=== PATIENT | male | born 1980 | race African-American/Black ===

== ENCOUNTER → 2017-06-03 | Outpatient (CLI) | payer BC ==
[~2017-06-03] MED LIST: AMBIEN 10 MG TA10 MG PO; AMLODIPINE BESY10 MG PO; ASPIR 8181 MG PO; COZAAR 25 MG TA25 M1 PO; IBUPROFEN 800800 M1 PO; NABUMETONE 500500 M1 PO; NAPROSYN500 MG PO; NEURONTIN 300300 M1 PO; NORCO 5-325 TA1 EACH PO; PERCOCET 10-321 EACH PO; TIZANIDINE4 MG/1 TA1 PO
--- NOTE | 2017-06-05 09:33 | PAINCON ---
[address] [address] PAIN MANAGEMENT CONSULTATION Name: BENJAMIN EDWARDS Room: [facility].#: [id number] Admission: 06/03/17 Attend Phys: Christelle Camilo Discharge: Date of : 78 Report #: [id number] THIS REPORT FOR: //name// CC: David Kevin DATE OF SERVICE: 06/03/2017 The patient is a 36-year-old gentleman, prior seen in the pain clinic 04/15/2017 diagnosed with axial back pain, lumbosacral spondylosis, component of lumbar radiculopathy. Comorbidities include morbid obesity, hypertension. The patient returns to pain clinic today. He is continuing with Naprosyn 500 mg on a p.r.n. basis, tizanidine for spasm. I gave him a small prescription of Percocet 7.5/325 of #45 tablets at last visit with some efficacy. We sought authorization for bilateral L4-L5 and L5-S1 facet joint injections at last visit. He returns to pain clinic today noting pain continues to be problematic in the low back, exacerbated with rotating and side bending. No radicular symptoms are noted. Rates pain a 3-4 on a VAS. PHYSICAL EXAMINATION: Shows a 6 feet 1 inch, 367 pound gentleman, BMI is elevated at 48.5 kilograms per meter squared. Blood pressure is elevated 160/104, repeat at 140/99, pulse 80, respirations 16. Rises from chair using armrest. Diffuse tenderness across the low back. Pain is exacerbated with side bending and rotation. Lower extremity strength symmetric. Straight leg raise negative. We reviewed the fact that opiate medications are being used to provide analgesia adequate to support activities of daily living, not attempting to achieve a specific pain score on the 0-10 Visual Analog Scale. The current opiate medications are providing sufficient analgesia to allow the patient to participate in activities of daily living. The patient is not exhibiting any aberrant behavior suggestive of drug diversion. The patient is not having any adverse reactions to medications. The patient is not suffering from daytime somnolence or mental acuity changes. The patient is managing opiate-induced constipation with appropriate llpw-rpj-[id number] agents and dietary considerations. The patient was counseled on concern for caution with operating a motor vehicle while using opiate medications. A physical exam was performed and the patient's functional status was evaluated. All patients with back pain were advised against the bed rest greater than 4 days and were advised to return to normal activities. Pain score assessment was noted and the treatment plan was reviewed with the patient. All current medications, both prescribed and OTC were reviewed and reconciled on the electronic medical record. Tobacco screening was accomplished and smoking cessation was advised when indicated. BMI was noted and diet/[place] [address] PAIN MANAGEMENT CONSULTATION Name: BENJAMIN EDWARDS [facility] [id number] Admission: 06/03/17 Attend Phys: Christelle Camilo Discharge: Date of : 79 Report #: [id number] modification was recommended for all patients following outside normal parameters. I reviewed with the patient today their responsibilities to safeguard prescription medications, reviewed their responsibility to utilize medications only as prescribed by the physician. They are to seek and receive pain medications only from 1 physician group ( [facility]). They are to use 1 pharmacy and keep the clinic informed if they change pharmacies. Their responsibilities include making followup visits in a timely fashion and to avoid abrupt discontinuation of medication usage. Their responsibilities further include bringing their medications (bottles from the pharmacy with residual pills) to the visit for possible confirmation of pill counts and the patient understands it is their responsibility to submit to random drug screens to ensure both that the medications prescribed are present, and that no other controlled substances are present. All prescriptions provided today were generated electronically. ASSESSMENT: 1. Symptomatic lumbar radiculopathy, clinical exam and history, axial back pain, lumbar spondylosis requiring complex medication management. Comorbidity includes morbid obesity, hypertension. RECOMMENDATION: 1. Continue Naprosyn on a p.r.n. basis. Suggest he follow up with general assembler installer physician regarding hypertension. 2. Continue tizanidine 4 mg t.i.d. 3. I have taken the liberty of renewing Percocet 7.5/325 one tablet 2-3 times a day, limit #60 tablets. We will again ask his general assembler installer physician check renal function as well as evaluate hypertension. 2. Lumbar spondylosis. PROCEDURE: Bilateral L4-L5 and facet joint injection under fluoroscopy. PROCEDURE NOTE: After written informed consent was obtained, the patient was taken to the fluoroscopy suite and placed in prone position. After sterile prep and drape, skin was raised. A 22-gauge 6-inch Chiba needle was placed to contact the inferior aspect of the left L4-L5 facet joint. A second needle was placed to contact the posterior aspect of the left L5-S1 facet joint. AP and lateral projections showed good needle placement. A 25 mg of triamcinolone plus 1 mL of 0.5% preservative-free bupivacaine was injected through each needle. Needle was removed. C-arm was turned obliquely to the right and the procedure was repeated at this side. After all 4 needles were removed, the area was cleansed and Band-Aids were applied. The patient was allowed to ambulate to recovery, monitored for an appropriate period of time. Fluoroscopy time was 27 [place] [address] PAIN MANAGEMENT CONSULTATION Name: BENJAMIN EDWARDS Room: [facility]#: [id number] Admission: 06/03/17 Attend Phys: Christelle Camilo Discharge: Date of : 79 Report #: [id number] Follow up in 4 weeks for reevaluation. <ELECTRONICALLY SIGNED> By: Christian Kevin DO 06/05/17 0933 [id number] [id number] Kevin DO /nt
== END | disposition home or self-care (01) ==
LOC: M.PC 04-22 02:25
DX: M47.26 Other spondylosis with radiculopathy, lumbar region (principal); M47.817 Spondylosis without myelopathy or radiculopathy, lumbosacral region; E66.9 Obesity, unspecified; I10 Essential (primary) hypertension; Z68.42 Body mass index [BMI] 45.0-49.9, adult; Z79.899 Other long term (current) drug therapy

== ENCOUNTER → 2017-09-30 | Outpatient (CLI) | payer BC ==
--- NOTE | 2017-10-01 07:19 | PAINCON ---
[address] [address] PAIN MANAGEMENT CONSULTATION Name: BENJAMIN EDWARDS Room: [facility].#: [id number] Admission: 09/30/17 Attend Phys: Christelle Camilo Discharge: Date of : 78 Report #: [id number] THIS REPORT FOR: //name// CC: David Kevin The patient is a 37-year-old gentleman, prior seen in pain clinic for symptomatic lumbar spondylosis without myelopathy. The patient had lumbar facet joint injections 06/03/2017 (bilateral L4-L5, L5-S1). Due to the patient's size, a 22-gauge 6-inch Chiba needle was used. He returns to pain clinic today. He notes that injection afforded near 90% relief for 1.5-2 weeks. Pain gradually returned to baseline over the next 4-6 weeks. Currently, rates pain at 6/10. He used tizanidine p.r.n. "every couple of days." Percocet 7.5/325, 0-2 a day. Prior prescription for 60 Percocet was given August 12. That prescription lasted nearly 2 months. He returns to pain clinic today noting pain is a 2-3 on a VAS at present, may gets up to 6. Pain is across the low back, exacerbated with rotation and side bending. Flexion exacerbates pain a little bit, not quite as much. Lower extremity strength is preserved. Tenderness over the low lumbar facets is noted, again exacerbated with rotation. No radicular symptoms or myelopathic symptoms are noted. Discussed therapeutic options with the patient today. We reviewed prior diagnostic studies including MRI of the lumbar spine from 04/17/2014 noting diffuse facet arthropathy L4-L5 and L5-S1. Symptomatic lumbar and lumbosacral spondylosis without myelopathy. RECOMMENDATIONS: Renew Percocet 7.5/325 one tablet 2-3 times a day, limit 75 tablets for 30 days. Continue tizanidine 4 mg p.r.n., continue naproxen 500 mg b.i.d. We will seek authorization for bilateral L4-L5 and L5-S1 facet joint injection under fluoroscopy. <ELECTRONICALLY SIGNED> By: Christian Kevin DO 10/01/17 0719 1415 [id number] Kevin DO /nt
== END ==
LOC: M.PC 03:39
DX: M47.816 Spondylosis without myelopathy or radiculopathy, lumbar region (principal); M47.817 Spondylosis without myelopathy or radiculopathy, lumbosacral region

== ENCOUNTER → 2017-11-04 | Outpatient (CLI) | payer BC ==
--- NOTE | 2017-11-05 07:56 | PAINCON ---
[address] [address] PAIN MANAGEMENT CONSULTATION Name: BENJAMIN EDWARDS Room: [facility]#: [id number] Admission: 11/04/17 Attend Phys: Christelle Camilo Discharge: Date of : 79 Report #: [id number] THIS REPORT FOR: //name// CC: David Kevin DATE OF SERVICE: 11/04/2017 The patient is a very pleasant 37-year-old gentleman being treated for lumbar spondylosis without myelopathy. On 09/30/2017, he was seen in the Pain Clinic with ongoing axial back pain. Continued on p.r.n. Percocet 7.5/325 one tablet 2-3 times a day. He had prior had facet joint injections in May with good incremental relief. Pain began to recur. We sought authorization for bilateral lumbar facet joint injections. He returns to the Pain Clinic today noting pain is primarily and in fact exclusively left-sided. Pain is exacerbated with rotation and side bending. It is in the left low back. SI joint appears unremarkable. Lower extremity strength is preserved. Straight leg raising negative. We reviewed the fact that opiate medications are being used to provide analgesia adequate to support activities of daily living, not attempting to achieve a specific pain score on the 0-10 Visual Analog Scale. The current opiate medications are providing sufficient analgesia to allow the patient to participate in activities of daily living. The patient is not exhibiting any aberrant behavior suggestive of drug diversion. The patient is not having any adverse reactions to medications. The patient is not suffering from daytime somnolence or mental acuity changes. The patient is managing opiate-induced constipation with appropriate ftls-tbq-yjpbkdu agents and dietary considerations. The patient was counseled on concern for caution with operating a motor vehicle while using opiate medications. A physical exam was performed and the patient's functional status was evaluated. All patients with back pain were advised against the bed rest greater than 4 days and were advised to return to normal activities. Pain score assessment was noted and the treatment plan was reviewed with the patient. All current medications, both prescribed and OTC were reviewed and reconciled on the electronic medical record. Tobacco screening was accomplished and smoking cessation was advised when indicated. BMI was noted and diet/exercise modification was recommended for all patients following outside normal parameters. I reviewed with the patient today their responsibilities to safeguard prescription medications, reviewed their responsibility to utilize medications only as prescribed by the physician. They are to seek and receive pain medications only from 1 physician group ( [facility]). They are to use 1 pharmacy and keep the clinic informed if [place] [address] PAIN MANAGEMENT CONSULTATION Name: BENJAMIN EDWARDS Room: [facility] Deric#: [id number] Admission: 11/04/17 Attend Phys: Christelle Camilo Discharge: Date of : 78 Report #: [id number] responsibilities include making followup visits in a timely fashion and to avoid abrupt discontinuation of medication usage. Their responsibilities further include bringing their medications (bottles from the pharmacy with residual pills) to the visit for possible confirmation of pill counts and the patient understands it is their responsibility to submit to random drug screens to ensure both that the medications prescribed are present, and that no other controlled substances are present. All prescriptions provided today were generated electronically. ASSESSMENT: Lumbar spondylosis without myelopathy, lumbosacral spondylosis without myelopathy, axial back pain, complex medication management. RECOMMENDATION: We will renew Percocet 7.5/325. Again, typically he takes 0-3 tablets a day. Encouraged to use nondaily. We will be repeating facet joint injections today. Hopefully this will decrease his overall pain generator. He is traveling for his job, will be gone for about 60 days. With this in mind, I have taken the liberty of renewing Percocet 7.5/325, enabling up to 4 tablets a day, thus enabling the patient to receive a prescription for 120 tablets. We anticipate that this prescription should last a couple of months. We will have him follow up for ongoing management, likely return to 75 tablets prescription for Percocet 7.5 as needed. Continue tizanidine 4 mg up to 3 a day for spasm and Naprosyn 500 mg b.i.d. ASSESSMENT: Symptomatic lumbar spondylosis, primarily left-sided pain at this point. PROCEDURE: Left L4-L5 and left L5-S1 facet joint injection under fluoroscopy. PROCEDURE NOTE: After written informed consent was obtained, the patient was taken to the fluoroscopy suite and placed in prone position. After sterile prep and drape, skin wheal was raised. A 22-gauge 6-inch Chiba needle was placed to contact the inferior aspect of the left L4-L5 and left L5-S1 facets. AP and lateral projections showed good needle placement. 30 mg triamcinolone plus 1 mL of 0.5% preservative-free bupivacaine was injected at both sites. Both needles were removed. The area was cleansed, Band-Aids applied. The patient monitored for an appropriate period of time, discharged in good and stable condition. <ELECTRONICALLY SIGNED> By: Christian Kevin DO 11/05/17 0756 1237 1923[facility] Hospitalmatt Kevin DO /nt
== END | disposition home or self-care (01) ==
LOC: M.PC 10-07 04:00
DX: M47.816 Spondylosis without myelopathy or radiculopathy, lumbar region (principal); G89.29 Other chronic pain; M47.817 Spondylosis without myelopathy or radiculopathy, lumbosacral region; M54.9 Dorsalgia, unspecified; Z79.891 Long term (current) use of opiate analgesic; Z79.899 Other long term (current) drug therapy; Z79.82 Long term (current) use of aspirin; Z98.890 Other specified postprocedural states

== ENCOUNTER → 2018-02-23 | Outpatient (CLI) | payer BC ==
--- NOTE | 2018-03-01 10:00 | PAINCON ---
[address] [address] PAIN MANAGEMENT CONSULTATION Name: BENJAMIN EDWARDS [facility] [id number] Admission: 02/23/18 Attend Phys: Belgica Carlos MD Discharge: Date of : 79 Report #: [id number] THIS REPORT FOR: //name// CC: David Carlos DATE OF SERVICE: 02/23/2018 CHIEF COMPLAINT: Low back pain. HISTORY OF PRESENT ILLNESS: The patient is a 37-year-old black gentleman who has been followed in the pain clinic by Dr. Christian Kevin. This is my first visit with the patient. The patient has a history of lumbar spondylosis without myelopathy. He has been seen in the pain clinic and treated for axial back pain. Finds that Percocet 7.5 mg 2-3 times a day have been helpful. The patient has had a history of facet joint injections, which were helpful. He returns today from work. The patient is employed by the [employer]. He is in town and out of town quite sporadically. Today is the day that he has returned to town and has come to the pain clinic for renewal of his medications. He finds that use of opioids are helpful as well as use of nonsteroidal anti-inflammatory medications. He feels that the Flexeril medication is helpful. These medications do not cause any problems with his sensorium. He is alert and awake while using these medications. He has had no problems with their use. ALLERGIES: No known drug allergies. MEDICATIONS: Amlodipine 10 mg daily, aspirin 81 mg chewable, losartan 25 mg daily, Naprosyn 500 mg b.i.d., oxycodone 10/325 one q.4-6h. p.r.n. and tizanidine 4 mg t.i.d. PAST MEDICAL HISTORY: Hypertension and bilateral sciatica. PAST SURGICAL HISTORY: Right hand surgery in 2000, hip pins in his hip surgery 1990 at 10 years of age. 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 He is working at this juncture. REVIEW OF SYSTEMS: Generally good health, wears glasses, sore throat, chronic cough, frequent urination at night, joint pain, weakness and joints, back pain, difficulty walking and insomnia. LABORATORY DATA: No new laboratory values are available at [place] [address] PAIN MANAGEMENT CONSULTATION Name: BENJAMIN EDWARDS Room: [facility]#: [id number] Admission: 02/23/18 Attend Phys: Belgica Carlos MD Discharge: Date of : 78 Report #: [id number] PAIN CLINIC ASSESSMENT/PQRS: 1. History of osteoarthritis. The patient is not being treated for osteoarthritis or rheumatoid arthritis. 2. Height 6 feet 1 inch, weight 3360 pounds, BMI is 47. 3. Vital signs: Blood pressure 104/68, heart rate 101, respiratory rate 16, room air saturation 97% and temperature 98.3. 3. Pain score 3-4/10. 4. Fall risk. The patient has not fallen in the last 3 months. 5. Blood thinner. The patient is not on a blood thinning medication. 6. Hypertension. The patient is being treated for hypertension. 7. Opioid therapy greater than 6 weeks. The patient receives opioid medications through the pain clinic and takes them as prescribed. 8. Risk assessment tool, low risk for opioid use. 9. Functional assessment tool. 10. Recreational drug use. The patient denies use of recreational drugs. 11. Tobacco: The patient denies use of tobacco. 12. Alcohol: The patient denies other than occasional use of alcoholic beverages. PHYSICAL EXAMINATION: GENERAL: The patient is a well-developed well-nourished black male, appears his stated age. He is alert and oriented x 3. Affect is appropriate. Speech is fluent. HEENT: Normocephalic, atraumatic. Extraocular eye muscles intact. Sclerae nonicteric. Mucous membranes are moist. NECK: Without adenopathy or JVD. No bruits. CHEST: Clear to auscultation HEART: Regular rate. S1, S2 without murmurs. ABDOMEN: Protuberant. Bowel sounds present. Upper extremity muscle strength to be 5/5 for the major muscle groups. MUSCULOSKELETAL: Without significant scoliosis, kyphosis or lordosis. The patient complains of some midline pain in the low back left and right, approximately L4-L5 through L5-S1 area. He has muscle strength judged to be 5/5 for the major muscle groups in the lower extremity without significant changes in sensory or muscle strength. IMPRESSION: 1. History of lumbar spondylosis with back pain. 2. History of lumbar radiculopathy. 3. Obesity. 4. Hypertension. RECOMMENDATIONS: We discussed treatment options with the patient. We will continue with his current medications. States he does not have any problem with his medications. He is able to do his work in his job without any concerns. Medications enable him to be more active with less pain and discomfort. Notes [address] [address] PAIN MANAGEMENT CONSULTATION Name: BENJAMIN EDWARDS Room: [facility]#: [id number] Admission: 02/23/18 Attend Phys: Belgica Carlos MD Discharge: Date of : 78 Report #: [id number] that walking, sitting and certain other activities can exacerbate his pain. Continues to modify his pain by use of medications activities as well as stretching. He would like to have his medications renewed. He will follow up in the near future as needed. We would like to thank you for letting us participate in his care. A script for oxycodone 10/325, tizanidine 4 mg and Naprosyn have been written. <ELECTRONICALLY SIGNED> By: Belgica Carlos MD 03/01/18 1000 [id number] 1047N. Keven Carlos MD /nt
== END ==
LOC: M.PC 04:31
DX: M47.896 Other spondylosis, lumbar region (principal); M54.16 Radiculopathy, lumbar region; E66.9 Obesity, unspecified; I10 Essential (primary) hypertension

== ENCOUNTER → 2018-04-20 | Outpatient (CLI) | payer BC ==
--- NOTE | ~2018-04-20 | PAINCON ---
[address] [address] PAIN MANAGEMENT CONSULTATION Name: BENJAMIN EDWARDS [id number] Admission: 04/20/18 Attend Phys: Belgica Carlos MD Discharge: Date of : 78 Report #: [id number] THIS REPORT FOR: //name// CC: David Carlos DATE OF SERVICE: 04/20/2018 FOLLOWUP COMPLAINT: Here for medication renewal. "I am going to be going to [place] for about 60 days." FOLLOWUP HISTORY: The patient is a gentleman who has been followed in the pain clinic because of lumbar spondylosis without myelopathy. He has undergone facet joint injections in the past and gleaned benefits from these. At this juncture, he would like to have his medications renewed. He has found that they were helpful. He is employed by the [employer]. Because of his frequent and changing schedule, he is quite sporadic. He has returned today and would like to get his medications renewed. He would like to return in the future for possibility of facet joint injections on the left and right side at the L4-L5 and L5-S1 areas. He feels his medications are helpful. He has had no complication from their use in the past. ALLERGIES: No known drug allergies. CURRENT MEDICATIONS: Amlodipine 10 mg daily, aspirin 81 mg chewable, losartan 25 mg, Naprosyn 500 mg b.i.d., oxycodone 10/325, tizanidine 4 mg t.i.d. PAIN CLINIC ASSESSMENT/PQRS: 1. The patient is not being treated for osteoarthritis or rheumatoid arthritis. 2. Height 6 feet 1 inch, weight 371 pounds, BMI is 47. 3. Vital signs: Blood pressure 160/98, heart rate 98, respiratory rate 16, room air saturation 94%, temperature 97.9. 4. Pain intensity: 4/10. 5. Fall risk: The patient has not fallen in the last 3 months. 6. Blood thinner: The patient is not on a blood thinning medication. 7. Hypertension: The patient is being treated for hypertension. 8. Opioid therapy greater than 6 weeks: The patient receives his medications from [facility], the pain clinic. 9. Risk assessment tool: Low for opioid use. 10. Functional assessment tool. 11. Recreational drug use: The patient denies use of recreational drugs. 12. Tobacco: The patient denies use of tobacco. 13. Alcohol: The patient denies use of alcoholic beverages other than on occasion. PHYSICAL EXAMINATION: [address] [place] [address] PAIN MANAGEMENT CONSULTATION Name: BENJAMIN EDWARDS Room: [facility]#: [id number] Admission: 04/20/18 Attend Phys: Belgica Carlos MD Discharge: Date of : 78 Report #: [id number] GENERAL: The patient is a well-developed, well-nourished black male, appears his stated age. He is obese. Speech is fluent. HEENT: Normocephalic, atraumatic. Extraocular eye muscles intact. NECK: Without adenopathy or JVD. The patient is without bruits. CHEST: Clear to auscultation without rhonchi or rales. HEART: Regular rate. S1, S2. ABDOMEN: Protuberant. Bowel sounds present. EXTREMITIES: Upper extremity muscle strength is judged to be 5/5 for the major muscle groups. MUSCULOSKELETAL: Without significant scoliosis, kyphosis or lordosis. The patient has some pain and discomfort in the midline area. Pain and discomfort in the L4-L5 area as well as the L5-S1 area. Rotation left and right, lumbar extension and flexion cause increased pain and discomfort in the low back area. IMPRESSION: 1. History of lumbar spondylosis with back pain. 2. History of lumbar radiculopathy. 3. Obesity. 4. Hypertension. RECOMMENDATIONS: We discussed treatment options with the patient. The patient is going to be in [place] for about the next month for 60 days. He would like to have his medications renewed. A script for his medications has been renewed. The patient will take two to three tablets p.o. every day for the next month. He has been given additional amount of medication to cover for the next month when he is up in [place]. He will take the medication as prescribed. He will call us if he has any concerns. The patient is considering the possibility of undergoing facet joint injections here in the near future before he departs for [place]. He will call us and make an appointment. Risks and benefits of the procedure were again reviewed. They include but are not limited to infection, worsening pain, no improvement in pain, bleeding. The patient elects to proceed. He will return to the pain clinic at which time he will then undergo facet joint injections bilaterally at the L5 area. We would like to thank you for letting us participate in his care. We hope he continues to improve. By: [id number] [id number]. Keven Carlos MD /[place]
== END ==
LOC: M.PC 10:21
DX: M47.896 Other spondylosis, lumbar region (principal); M54.16 Radiculopathy, lumbar region; I10 Essential (primary) hypertension; E66.9 Obesity, unspecified; Z79.899 Other long term (current) drug therapy

== ENCOUNTER → 2018-06-08 | Outpatient (CLI) | payer BC ==
--- NOTE | ~2018-06-08 | PAINCON ---
[address] [address] PAIN MANAGEMENT CONSULTATION Name: BENJAMIN EDWARDS [id number] Admission: 06/08/18 Attend Phys: Belgica Carlos MD Discharge: Date of : 78 Report #: [id number] THIS REPORT FOR: //name// CC: David Leblanc DO David Carlos DATE OF SERVICE: 06/08/2018 CHIEF COMPLAINT: Here for medications and injection in the lower back. I had in the past, which was helpful. HISTORY OF PRESENT ILLNESS: The patient is a 37-year-old gentleman who has been followed in the pain clinic. As you recall, he has pain in the lower lumbar area with history of spondylosis without myelopathy. He has undergone facet joint injections in the past and found benefits from these. At this juncture, he has returned today with the desire to have his medications renewed. He would also like to proceed with facet joint injections in the right low back area. He works for the [employer]. As you recall, he is in and out of town quite a bit. He is in town on vacation for the next week or so. ALLERGIES: No known drug allergies. CURRENT MEDICATIONS: Amlodipine 10 mg, aspirin 81 mg, losartan 25 mg, Naprosyn 500 mg b.i.d., oxycodone 10/325, and tizanidine 4 mg t.i.d. PAIN CLINIC ASSESSMENT/PQRS: 1. The patient is not being treated for osteoarthritis or rheumatoid arthritis. 2. Height 6 feet 1 inch, weight 365 pounds, BMI is 46.8. 3. Vital Signs: Blood pressure 137/85, heart rate 95, respiratory rate 18, room air saturation is 95%, temperature 97.5. 4. Pain intensity score 6/10. 5. Fall history: The patient has not fallen in the last 3 months. 6. Blood thinner. The patient is not on a blood thinning medication. 7. Hypertension. The patient is being treated for hypertension. 8. Opioid greater than 6 weeks. The patient receives the medications from one source, the pain clinic. 9. Risk assessment tool, low for opioid use. 10. Functional assessment tool. 11. Recreational drug use. The patient denies use of recreational drugs. 12. Tobacco: The patient denies use of tobacco. 13. Alcohol: The patient denies use of alcoholic beverages other than on rare occasions. PHYSICAL EXAMINATION: GENERAL: The patient is a well-developed, well-nourished, [place] [address] PAIN MANAGEMENT CONSULTATION Name: BENJAMIN EDWARDS Room: [facility]#: [id number] Admission: 06/08/18 Attend Phys: Belgica Carlos MD Discharge: Date of : 78 Report #: [id number] is alert and oriented. Speech is fluent. NECK: Without adenopathy or JVD. CHEST: Clear to auscultation without rhonchi or rales. HEART: Regular rate. S1, S2. ABDOMEN: Protuberant. Bowel sounds present. EXTREMITIES: Upper extremity muscle strength judged to be 5/5 for the major muscle groups. MUSCULOSKELETAL: Without significant scoliosis, kyphosis or lordosis. The patient has some pain and discomfort in the low back area. Lumbar extension, flexion and rotation cause increased pain and discomfort in the right low back area. This is near the L4-L5 areas. Palpation in these areas do reproduce some of his discomfort. IMPRESSION: 1. History of lumbar spondylosis with pain and discomfort in the back. 2. History of lumbar radiculopathy. 3. Obesity. 4. Hypertension. RECOMMENDATIONS: We discussed treatment options with the patient. Risks and benefits of facet joint injections were discussed. They include but are not limited to infection, worsening pain, no improvement in pain, bleeding, nerve damage and the patient elects to proceed. PROCEDURE NOTE: The patient was assisted in getting on the examination table. His back was sterilely prepped with a Betadine solution and allowed to dry. Fluoroscopy using anterior and lateral viewing were implemented. A skin wheal was placed at the L4-L5 and L5-S1 facet area. A 22-gauge Chiba needle was then directed to the right L4-L5 facet joint. Similar direction was used on the right L5-S1 area. Local anesthetic was injected as we navigated to the appropriate sites. After appropriate placement, a total of 20 mg triamcinolone was injected. Additional 20 mg triamcinolone with 3 mL of 0.5% bupivacaine was injected in the surrounding area. I would likewise, the L5-S1 area was identified. A total of 20 mg triamcinolone was injected. A total of 20 mg with 3 mL of 0.5% bupivacaine was injected in the surrounding area after the facet joint had been injected. The patient tolerated the procedure well. A total of 37 seconds fluoroscopy time was used. The patient remained in the pain clinic for an appropriate amount of time. He will follow up in the future as needed. We would like to thank you for letting us participate in his care. We hope he continues to improve. By: [id number]. Keven Carlos MD /nt
== END | disposition home or self-care (01) ==
LOC: M.PC 11:38
DX: M47.816 Spondylosis without myelopathy or radiculopathy, lumbar region (principal); G89.29 Other chronic pain; I10 Essential (primary) hypertension; E66.09 Other obesity due to excess calories; Z79.899 Other long term (current) drug therapy; Z79.82 Long term (current) use of aspirin; Z79.891 Long term (current) use of opiate analgesic; Z68.42 Body mass index [BMI] 45.0-49.9, adult